=== PATIENT | female | born 1985 | race Caucasian/White ===

== ENCOUNTER 2017-05-22 21:50 | Emergency (ER) | payer OTHER ==
[~2017-05-22] VITALS: Ht 160 cm; Wt 77.0 kg
[2017-05-22] MEDS ORDERED: ONDANSETRON 2MG/ML, 2ML ONE (23:23)
[2017-05-22] MEDS ORDERED: ONDANSETRON 2MG/ML, 2ML IVPush ONE (23:30)
[2017-05-22] MEDS ORDERED: SODIUM CHLORIDE FLUSH 10ML SYR IVF ONE (23:30)
[2017-05-22] MEDS ORDERED: SODIUM CHLORIDE 0.9% 1,000ML IVBOLUS ONE (23:30)
[2017-05-22 23:47] LABS: HEMATOCRIT 43.7 % (34.6-47.8); HEMOGLOBIN 14.9 g/dL (11.7-16.4)
[2017-05-22 23:50] VITALS: BP 128/77
[2017-05-22 23:57] LABS: ASPARTATE AMINO TRANSFERASE 21 U/L (15-37); BLOOD UREA NITROGEN 10 mg/dL (7-18)
== END 2017-05-23 01:04 | disposition home or self-care (01) ==
LOC: ED 23:59
DX: E86.0 Dehydration (principal); R10.84 Generalized abdominal pain
CPT/HCPCS: 36415; 80053; 83690; 84703; 85025; 96361; 96374; 99284; J2405; J7030